=== PATIENT | female | born 1950 | race Caucasian/White ===

== ENCOUNTER → 2020-04-29 | Outpatient (CLI) | payer OTHER ==
[~2020-04-29] MED LIST: KEFLEX500 MG PO; LISINOPRIL-HCT1 EACH PO
== END ==
LOC: SJCVC 15:37
PROVIDERS: ATTEND Internal Medicine Cardiovascular Disease
DX: I48.91 Unspecified atrial fibrillation (principal); R94.31 Abnormal electrocardiogram [ECG] [EKG]; D68.59 Other primary thrombophilia; E78.00 Pure hypercholesterolemia, unspecified; I10 Essential (primary) hypertension; Z98.890 Other specified postprocedural states; Z79.899 Other long term (current) drug therapy; Z82.49 Family history of ischemic heart disease and other diseases of the circulatory system

== ENCOUNTER → 2020-05-27 | Outpatient (CLI) | payer OTHER | LOC: SJCVC 12:49 | PROVIDERS: ATTEND Internal Medicine Cardiovascular Disease | DX: I48.0 Paroxysmal atrial fibrillation (principal); E78.00 Pure hypercholesterolemia, unspecified; D68.59 Other primary thrombophilia; I10 Essential (primary) hypertension; Z82.49 Family history of ischemic heart disease and other diseases of the circulatory system; Z79.899 Other long term (current) drug therapy; Z72.89 Other problems related to lifestyle ==

== ENCOUNTER → 2020-05-27 | Outpatient (CLI) | payer OTHER | LOC: CAT 13:32 | PROVIDERS: ATTEND Internal Medicine Cardiovascular Disease | DX: Z13.6 Encounter for screening for cardiovascular disorders (principal); I25.10 Atherosclerotic heart disease of native coronary artery without angina pectoris; E78.00 Pure hypercholesterolemia, unspecified ==

== ENCOUNTER → 2020-06-22 | Outpatient (CLI) | payer OTHER | LOC: SJCVCIMAG 07:15 → SJCVC 08:11 → SJCVCIMAG 09:43 → SJCVC 12:39 | PROVIDERS: ATTEND Internal Medicine Cardiovascular Disease | DX: I08.1 Rheumatic disorders of both mitral and tricuspid valves (principal); I48.0 Paroxysmal atrial fibrillation; I48.92 Unspecified atrial flutter; D68.59 Other primary thrombophilia; I10 Essential (primary) hypertension; E78.5 Hyperlipidemia, unspecified; R00.0 Tachycardia, unspecified ==

== ENCOUNTER → 2020-06-26 | Outpatient (CLI) | payer OTHER | LOC: SJCVCIMAG 10:44 | PROVIDERS: ATTEND Internal Medicine Cardiovascular Disease | DX: I49.3 Ventricular premature depolarization (principal); I48.0 Paroxysmal atrial fibrillation; R06.09 Other forms of dyspnea; E78.5 Hyperlipidemia, unspecified; I10 Essential (primary) hypertension; Z79.899 Other long term (current) drug therapy ==

== ENCOUNTER → 2020-07-15 | Outpatient (CLI) | payer OTHER | LOC: SJCVC 13:19 | PROVIDERS: ATTEND Nurse Practitioner Adult Health | DX: R94.31 Abnormal electrocardiogram [ECG] [EKG] (principal); I48.0 Paroxysmal atrial fibrillation; D68.59 Other primary thrombophilia; I10 Essential (primary) hypertension; E78.00 Pure hypercholesterolemia, unspecified; Z98.890 Other specified postprocedural states; Z79.899 Other long term (current) drug therapy; Z82.49 Family history of ischemic heart disease and other diseases of the circulatory system ==

== ENCOUNTER → 2020-07-22 | Outpatient (CLI) | payer OTHER | LOC: SJCVC 16:30 | PROVIDERS: ATTEND Internal Medicine Cardiovascular Disease | DX: R00.1 Bradycardia, unspecified (principal); I48.0 Paroxysmal atrial fibrillation; I10 Essential (primary) hypertension; E66.01 Morbid (severe) obesity due to excess calories; I48.3 Typical atrial flutter; E78.5 Hyperlipidemia, unspecified; E66.9 Obesity, unspecified; Z79.899 Other long term (current) drug therapy; Z82.49 Family history of ischemic heart disease and other diseases of the circulatory system ==

== ENCOUNTER → 2020-08-17 | Outpatient (CLI) | payer OTHER ==
[~2020-08-17] MED LIST changes: +ELIQUIS5 MG PO; +PACERONE200 MG PO; +TOPROL XL50 MG PO
[2020-08-17 10:01] LABS: ABSOLUTE NEUTROPHILS 4.6 thou/uL (1.4-8.2); BASOPHILS 0.7 % (0.0-2.0); EOSINOPHILS 3.1 % (0.0-3.0); HEMATOCRIT 40.9 % (37.0-47.0); HEMOGLOBIN 13.3 gm/dL (12.0-15.0); LYMPHOCYTES 27.5 % (24.0-44.0); MCH 28.5 pg (26.0-34.0); MCHC 32.5 g/dL (28.0-37.0); MCV 87.8 fL (80.0-100.0); MONOCYTES 9.5 % (1.0-8.0); PLATELET COUNT 238 thou/uL (150-400); POLYS 59.2 % (36.0-66.0); RBC 4.66 mil/uL (4.20-5.00); RDW 14.9 % (10.5-14.5); WBC 7.9 thou/uL (4.0-11.0)
[2020-08-17 10:11] LABS: ALBUMIN 3.9 g/dL (3.4-5.0); CALCIUM 9.1 mg/dL (8.5-10.1); CREATININE 1.1 mg/dL (0.6-1.0); POTASSIUM 4.4 mmol/L (3.5-5.1); TOTAL BILIRUBIN 0.4 mg/dL (0.2-1.0); TOTAL PROTEIN 7.4 g/dL (6.4-8.2)
== END ==
LOC: LAB 09:04 → CAT 09:14 → LAB 11:39
PROVIDERS: ATTEND Internal Medicine Cardiovascular Disease
DX: Z01.812 Encounter for preprocedural laboratory examination (principal); I48.91 Unspecified atrial fibrillation

== ENCOUNTER → 2020-08-18 | Outpatient (CLI) | payer OTHER ==
[~2020-08-18] MED LIST changes: -ELIQUIS5 MG PO; -PACERONE200 MG PO; -TOPROL XL50 MG PO
== END ==
LOC: CAT 10:03
PROVIDERS: ATTEND Internal Medicine Cardiovascular Disease
DX: I48.91 Unspecified atrial fibrillation (principal); I25.84 Coronary atherosclerosis due to calcified coronary lesion

== ENCOUNTER → 2020-08-21 | Outpatient (CLI) | payer OTHER ==
[~2020-08-21] VITALS: Ht 167.6 cm; Wt 112.9 kg
[~2020-08-21] MED LIST changes: +ELIQUIS5 MG PO; +PACERONE200 MG PO; +TOPROL XL50 MG PO
[2020-08-21 07:33] VITALS: BP 171/66
[2020-08-21 08:01] LABS: APTT 23.9 Seconds (24.5-32.8); INR 0.94; PROTIME 10.3 Seconds (10.5-12.1)
--- NOTE | 2020-08-24 10:55 | P ---
[facility] [place] [address] PROCEDURE REPORT Name: PIETER GALLEGOS Room #: REG [facility].#: [id number] Admission: 08/21/20 Attend Phys: Frank Alvarado MD Discharge: Date of : 48 Report #: [id number] THIS REPORT FOR: cc: Ian Sterling MD, Bruce D. MD Couchonnal, Luis F. MD ~ DOC #: [id number] Frank Alvarado MD DATE OF SERVICE: 08/21/2020 PREOPERATIVE DIAGNOSIS: Atrial fibrillation/atrial flutter. POSTOPERATIVE DIAGNOSIS: Atrial fibrillation/atrial flutter. PROCEDURES PERFORMED: 1. Atrial fibrillation ablation -- CPT code 11140. 2. 3D mapping. CPT code 81052. 3. Intracardiac echo, CPT code 99692. 4. Second pathway ablation -- CPT code 26117. ANESTHESIA: The patient underwent general anesthesia with no anesthesia related complications. INDICATIONS: The patient underwent informed consent. We discussed the details of the procedure including the risks, which include but not limited to bleeding, vascular damage, stroke, [place] as well as damage to the ak chin conduction system requiring permanent pacemaker. She understood these risks and is willing to proceed. DESCRIPTION OF PROCEDURE: The patient was brought to the EP laboratory in fasting and sedated state, prepped and draped in sterile fashion. I obtained access to the right femoral vein x 3, placing an 8, 9 and 7-Monegasque short sheath using the modified Seldinger technique. Under fluoroscopy decapolar catheter was placed in the coronary sinus. ICE catheter was placed in the right atrium. Using intracardiac ultrasound, there was evidence of two right and 2 left pulmonary veins. This was merged with the cardiac CT scan. At baseline, the patient was in sinus rhythm. The patient was systemically heparinized and a transseptal was performed using SL1 sheath and a [place] needle. This was straightforward. The SL1 sheath was exchanged for the CryoCath sheath and then the Lasso catheter was placed into the left atrium. Next, a 3D geometry of the left atrium was created and the patient's ablation was then initiated. The cryoballoon was placed into the left superior pulmonary vein. Left superior pulmonary vein underwent a 3-minute freeze and isolated at 24 seconds. Left inferior pulmonary vein underwent a 240 second freeze and isolated at 60 seconds. The right superior pulmonary vein underwent two 3-minute freezes without isolation. Another freeze was performed of 100 seconds duration without [facility] [address] [place] [address] PROCEDURE REPORT Name: PIETER GALLEGOS Room #: REG [facility]#: [id number] Admission: 08/21/20 Attend Phys: Frank Alvarado MD Discharge: Date of : 48 Report #: [id number] isolation. In the fourth freeze, it was more into the vein and I collected anteriorly and the vein isolated at 55 seconds. The final freeze was of 4 minutes' duration. The right inferior pulmonary vein underwent a 4-minute freeze and isolated at 60 seconds. Next, the Lasso catheter was placed back into the left atrium and all the veins appeared to be isolated. Of note, the patient did have a very small left inferior pulmonary vein, making it somewhat harder to enter. Given the patient's history of atrial flutter, the patient was prepped for atrial flutter ablation. Preablation the transisthmus conduction time was 55 milliseconds. Ablation was performed at 70 germain and 60 degrees and a continuous drag lesion was performed. Post-ablation transisthmus conduction time was 155 milliseconds with evidence of bidirectional block. As such, the procedure was concluded. Intracardiac ultrasound showed no pericardial effusion. The patient received systemic protamine and catheters and sheaths were pulled and a [id number] suture was performed in the right groin. CONCLUSIONS: 1. Successful AFib ablation with isolation of pulmonary veins. 2. Successful atrial flutter ablation with evidence of bidirectional block. MD LEXY Mathews/DAYNE <ELECTRONICALLY SIGNED> By: Frank Alvarado MD 08/24/20 [id number] Frank Alvarado MD /nt
== END | disposition home or self-care (01) ==
LOC: CATH 06:28
PROVIDERS: ATTEND Internal Medicine Cardiovascular Disease
DX: I48.91 Unspecified atrial fibrillation (principal); I48.92 Unspecified atrial flutter; I10 Essential (primary) hypertension; E66.09 Other obesity due to excess calories; Z98.890 Other specified postprocedural states; Z79.899 Other long term (current) drug therapy; Z79.01 Long term (current) use of anticoagulants; Z82.49 Family history of ischemic heart disease and other diseases of the circulatory system; Z20.822 Contact with and (suspected) exposure to COVID-19
CPT/HCPCS: 62110; 62900; 65020; 70005

== ENCOUNTER → 2020-11-17 | Outpatient (CLI) | payer OTHER | LOC: SJCVC 16:51 | PROVIDERS: ATTEND Internal Medicine Cardiovascular Disease | DX: I48.0 Paroxysmal atrial fibrillation (principal); I10 Essential (primary) hypertension; E66.01 Morbid (severe) obesity due to excess calories; I48.3 Typical atrial flutter; E78.5 Hyperlipidemia, unspecified; E66.9 Obesity, unspecified; Z79.899 Other long term (current) drug therapy; Z82.49 Family history of ischemic heart disease and other diseases of the circulatory system ==

== ENCOUNTER → 2021-02-23 | Outpatient (CLI) | payer OTHER | LOC: SJCVC 09:56 | PROVIDERS: ATTEND Internal Medicine Cardiovascular Disease | DX: I48.0 Paroxysmal atrial fibrillation (principal); I10 Essential (primary) hypertension; R06.00 Dyspnea, unspecified; R94.31 Abnormal electrocardiogram [ECG] [EKG]; R00.2 Palpitations; E78.5 Hyperlipidemia, unspecified; E66.9 Obesity, unspecified; Z79.899 Other long term (current) drug therapy; Z72.89 Other problems related to lifestyle; Z82.49 Family history of ischemic heart disease and other diseases of the circulatory system ==